=== PATIENT | male | born 1990 | race Caucasian/White ===

== ENCOUNTER 2017-01-10 08:55 | Emergency (ER) | payer OTHER ==
[2017-01-10 09:08] VITALS: BP 136/85
--- NOTE | 2017-01-10 09:45 | UC ---
Respiratory Complaint HPI - HPI Summary HPI Summary: 1 WEEK OF COUGH AND CONGESTION. NO FEVER, N/V/D. MILD ST WITH COUGH. - History of Current Complaint Chief Complaint: UCRespiratory Stated Complaint: COUGH Time Seen by Provider: 01/10/17 09:35 Hx Obtained From: Patient, Family/Business Development Coordinator - Onset/Duration: Gradual Onset, Lasting Days, Still Present Timing: Constant Severity Initially: Moderate Severity Currently: Moderate Pain Intensity: 0 Pain Scale Used: 0-10 Numeric Character: Cough: Nonproductive Aggravating Factors: Nothing Alleviating Factors: Nothing Associated Signs And Symptoms: Positive: URI, Nasal Congestion - Allergies/Home Medications Allergies/Adverse Reactions: Allergies Allergy/AdvReac Type Severity Reaction Status Date / Time hay fever Allergy Congestion Uncoded 01/10/17 09:02 pine trees Allergy Congestion Uncoded 01/10/17 09:02 PMH/Surg Hx/FS Hx/Imm Hx Endocrine History Of: Denies: Diabetes, Thyroid Disease Cardiovascular History Of: Denies: Cardiac Disorders, Hypertension Respiratory History Of: Reports: Asthma Denies: COPD GI/ History Of: Denies: Ulcer - Surgical History Surgical History: None - Family History Known Family History: Positive: Diabetes - Social History Alcohol Use: Rare Substance Use Type: None Smoking Status (MU): Former Smoker Type: Smokeless Tobacco Amount Used/How Often: DAILY-ALL DAY Length of Time of Smoking/Using Tobacco: 8 YRS - Immunization History Most Recent Influenza Vaccination: 2016 Most Recent Tetanus Shot: UTD Most Recent Pneumonia Vaccination: NONE Review of Systems Constitutional: Negative ENT: Sore Throat, Nasal Discharge Respiratory: Cough Cardiovascular: Negative Gastrointestinal: Negative All Other Systems Reviewed And Are Negative: Yes Physical Exam Triage Information Reviewed: Yes Appearance: Well-Appearing, No Pain Distress, Well-Nourished Vital Signs: Initial Vital Signs Temp 98.4 F 01/10/17 09:03 Pulse 74 01/10/17 09:03 Resp 18 01/10/17 09:03 BP 136/85 01/10/17 09:03 Pulse Ox 98 01/10/17 09:03 Vital Signs Reviewed: Yes Eyes: Positive: Conjunctiva Clear ENT: Positive: Hearing grossly normal, Pharyngeal erythema, TMs normal Neck: Positive: Supple, Nontender, No Lymphadenopathy Respiratory Exam: Normal Cardiovascular Exam: Normal Abdomen Description: Positive: Soft Musculoskeletal: Positive: No Edema Neurological: Positive: Alert Psychological: Positive: Normal Response To Family, Age Appropriate Behavior Skin: Negative: rashes UC Diagnostic Evaluation - Laboratory O2 Sat by Pulse Oximetry: 98 Respiratory Course/Dx - Differential Dx/Diagnosis Provider Diagnoses: ACUTE URI Discharge - Discharge Plan Condition: Stable Disposition: HOME Prescriptions: Albuterol HFA INHALER* [Ventolin HFA Inhaler*] 2 puff INH Q4H PRN #1 mdi PRN Reason: Shortness Of Breath guaiFENesin/CODIEN 100MG-10MG* [Robitussin AC 100Mg-10Mg*] 5 - 10 ml PO Q6H PRN #150 ml MDD 40 ML PRN Reason: Cough Patient Education Materials: Upper Respiratory Infection (ED) Referrals: SANDI Yepez [Primary Care Provider] - If Needed Additional Instructions: ACUTE UPPER RESPIRATORY INFECTION The common cold is a benign self-limited syndrome representing a group of diseases caused by members of several families of viruses. It is the most frequent acute illness in the [place] and throughout the industrialized world. The term "common cold" refers to a mild upper respiratory viral infection involving, to variable degrees, nasal congestion and discharge ( rhinorrhea), sneezing, sore throat, cough, low-grade fever, headache, and malaise. Symptomatic therapy remains the mainstay of common cold treatment. In the absence of convincing evidence of a secondary bacterial infection, antibiotics are not effective in the treatment of the common cold and should not be prescribed. Be advised that the usual course and duration of illness is up to one and a half weeks for patients with a cold, but can last slightly longer; symptoms usually persist longer in smokers.
== END 2017-01-10 09:54 | disposition home or self-care (01) ==
LOC: UCCORT 08:55
DX: J06.9 Acute upper respiratory infection, unspecified (principal); J45.909 Unspecified asthma, uncomplicated; Z87.891 Personal history of nicotine dependence
CPT/HCPCS: 99212; G0463

== ENCOUNTER 2018-07-16 17:12 | Emergency (ER) | payer OTHER ==
[2018-07-16 17:49] VITALS: BP 137/85
--- NOTE | 2018-07-16 18:40 | UC ---
Throat Pain/Nasal Rj HPI - HPI Summary HPI Summary: Pt c/o sinus congestion, pressure and pain X 4-5 days. - History of Current Complaint Chief Complaint: UCGeneralIllness Stated Complaint: COUGH,CONGESTION Time Seen by Provider: 07/16/18 18:27 Hx Obtained From: Patient Onset/Duration: Gradual Onset, Lasting Days, Still Present Severity: Moderate Pain Intensity: 0 Cough: None Associated Signs & Symptoms: Positive: Sinus Discomfort - Epiglottits Risk Factors Epiglottis Risk Factors: Negative - Allergies/Home Medications Allergies/Adverse Reactions: Allergies Allergy/AdvReac Type Severity Reaction Status Date / Time hay fever Allergy Congestion Uncoded 07/16/18 17:49 pine trees Allergy Congestion Uncoded 07/16/18 17:49 Home Medications: Home Medications Albuterol HFA INHALER* [Ventolin HFA Inhaler*] 2 puff INH Q4H PRN 07/16/18 [ History Confirmed 07/16/18] Cetirizine* [ZyrTEC 10 MG TAB*] 10 mg PO DAILY 07/16/18 [History Confirmed 07/16] Colchicine* [Colcrys*] 0.6 mg PO DAILY PRN 07/16/18 [History Confirmed 07/16/18] PMH/Surg Hx/FS Hx/Imm Hx Previously Healthy: Yes - Surgical History Surgical History: None - Family History Known Family History: Positive: Diabetes - Social History Occupation: Employed Full-time Lives: With Family Alcohol Use: Rare Substance Use Type: None Smoking Status (MU): Former Smoker Type: Smokeless Tobacco Amount Used/How Often: DAILY-ALL DAY Length of Time of Smoking/Using Tobacco: 8 YRS Have You Smoked in the Last Year: No - Immunization History Most Recent Influenza Vaccination: 2016 Most Recent Tetanus Shot: UTD Most Recent Pneumonia Vaccination: NONE Review of Systems All Other Systems Reviewed And Are Negative: Yes Constitutional: Positive: Fatigue Skin: Positive: Negative Eyes: Positive: Negative ENT: Positive: Sinus Congestion, Sinus Pain/Tenderness Respiratory: Positive: Cough Cardiovascular: Positive: Negative Gastrointestinal: Positive: Negative Genitourinary: Positive: Negative Motor: Positive: Negative Neurovascular: Positive: Negative Musculoskeletal: Positive: Negative Neurological: Positive: Headache Psychological: Positive: Negative Is Patient Immunocompromised?: No Physical Exam Triage Information Reviewed: Yes Appearance: Ill-Appearing Vital Signs: Initial Vital Signs Temp 97.5 F 07/16/18 17:46 Pulse 86 07/16/18 17:46 Resp 14 07/16/18 17:46 BP 137/85 07/16/18 17:46 Pulse Ox 99 07/16/18 17:46 Vital Signs Reviewed: Yes Eye Exam: Normal ENT: Positive: Nasal congestion, Sinus tenderness Dental Exam: Normal Neck exam: Normal Respiratory Exam: Normal Cardiovascular Exam: Normal Musculoskeletal Exam: Normal Neurological Exam: Normal Psychological Exam: Normal Skin Exam: Normal Throat Pain/Nasal Course/Dx - Differential Dx/Diagnosis Differential Diagnosis/HQI/PQRI: Influenza, Sinusitis, URI Provider Diagnosis: Sinusitis Discharge - Sign-Out/Discharge Documenting (check all that apply): Patient Departure All imaging exams completed and their final reports reviewed: No Studies - Discharge Plan Condition: Stable Disposition: HOME Prescriptions: Amoxicillin PO (*) [Amoxicillin 875 MG (*)] 875 mg PO Q12H #20 tab Guaifenesin/Pseudoephedrne HCl [Mucinex D ER 600-60 mg Tablet] 1 each PO Q12H # 10 tab.er.12h Patient Education Materials: Sinusitis (ED) Referrals: [facility] [Outside] No Primary Care Phys,NOPCP [Primary Care Provider] - - Billing Disposition and Condition Condition: STABLE Disposition: Home
== END 2018-07-16 18:51 | disposition home or self-care (01) ==
LOC: UCCORT 17:12
DX: J32.9 Chronic sinusitis, unspecified (principal); Z87.891 Personal history of nicotine dependence
CPT/HCPCS: 99212; G0463

== ENCOUNTER 2019-06-03 17:12 | Emergency (ER) | payer OTHER ==
--- OUTSIDE RECORDS SUMMARY | 2019-06-03 17:30 | XMS REPORT | Continuity of Care Document ---
:1990 External Reference #:[id number] Author Name Barbara Pascual M.D. Address [address] [place] [address] Care Team Providers Name Role Phone Josh Ferrara M.D Care Team Information Plant Quality Manager [phone] [facility] Care Team Information Plant Quality Manager [phone] Problems Active Problems Provider Date Allergic rhinitis due to animals Barbara Pascual M.D. Onset: 05/21/2019 Allergic rhinitis Barbara Pascual M.D. Onset: 05/21/2019 Mild persistent asthma Barbara Pascual M.D. Onset: 05/21/2019 Social History Type Date Description Comments Sex Unknown ETOH Use Rarely consumes alcohol Tobacco Use Start: Unknown End: Unknown Patient is a former smoker Recreational Drug Use Never Used Drugs Allergies, Adverse Reactions, Alerts Description No Known Drug Allergies Medications Active Medications SIG Qnty Indications Ordering Provider Date Benzonatate Master Beck, 200mg Activities Officer Capsules Montelukast Sodium Josh Ferrara, 10mg M.D Tablets Loratadine Take One Tablet Unknown 10mg Tablets By Mouth AT Bedtime Ventolin HFA Sylvia Giles 108(90Base) MJuan PA-C mcg/Act Aerosol Albuterol Sulfate Sylvia Giles MALEXA Martinez-C (2.5mg/3ML) 0.083% Nebulizer Immunizations Description No Information Available Vital Signs Date Vital Result Comment 05/21/2019 9:35am Height 67 inches 5'7" Weight 198.00 lb Weight 89.813 kg Respiratory Rate 20 /min Heart Rate 69 /min O2 % BldC Oximetry 98 % BP Systolic 118 mmHg BP Diastolic 83 mmHg Fractional Exhaled Nitric Oxide 9 BMI (Body Mass Index) 31.0 kg/m2 Results Description No Information Available Procedures Description No Information Available Medical Devices Description No Information Available Encounters Description No Information Available Assessments Date Code Description Provider 05/21/2019 J45.30 Mild persistent asthma Barbara Pascual M.D. 05/21/2019 J30.2 Allergic rhinitis Barbara Pascual M.D. 05/21/2019 J30.81 Allergic rhinitis due to animals Barbara Pascual M.D. Plan of Treatment 05/21/2019 - Barbara Pascual M.D.J45.30 Mild persistent uyyqsvQ37.2 Allergic [id number] Allergic rhinitis due to animalsRecommendations:Refrain from wearing perfumes/scented colognes while visiting our office. Karl Full PFT Skin testing to select envrotnal allergens performed reviewed Functional Status Description No Information Available Mental Status Description No Information Available Referrals Description No Information Available
--- OUTSIDE RECORDS SUMMARY | 2019-06-03 17:30 | XMS REPORT | Continuity of Care Document ---
:1990 External Reference #:[id number] Author Name Barbara Pascual M.D. Address [address] [place] [address] Care Team Providers Name Role Phone Josh Ferrara M.D Care Team Information Pelletizer Operator [phone] [facility] Care Team Information Pelletizer Operator [phone] Problems Active Problems Provider Date Allergic rhinitis [...] Medications SIG Qnty Indications Ordering Provider Date Crissy Allergy 1 by mouth every 30tabs Barbara Pascual, 05/21/2019 180mg day M.D. Tablets Nasacort Allergy spray 1 spray 10.800ml Barbara Pascual, 05/21/2019 24HR into each M.D. 55mcg/Act nostril one time Aerosol daily Breo Ellipta 1 puff once 60units Barbara Pascual, 05/21/2019 daily M.D. 100-25mcg/Inh Aerosol Benzonatate Master Beck, 200mg Landfill Gas Technician Capsules Montelukast Sodium Josh Ferrara, M.D 10mg Tablets Loratadine Take One Tablet Unknown 10mg By Mouth AT Tablets Bedtime Ventolin HFSylvia Mccarthy M., PA-C 108(90Base) mcg/Act Aerosol Albuterol Sulfate Sticht, Sylvia M., PA-C (2.5mg/3ML) 0.083% Nebulizer Immunizations Description No Information [...] kg/m2 Results Description No Information Available Procedures Date Code Description Status 05/21/2019 65780 Nitric Oxide Gas Determination Completed 05/21/2019 36336 Skin Test Scratch # Of Units ____ Completed 05/21/2019 17147 Pulmonary Function Test Completed Medical Devices Description No Information Available Encounters Description No Information Available Assessments Date Code Description Provider 05/21/2019 J45.30 Mild persistent asthma Barbara Pascual M.D. 05/21/2019 J30.2 Allergic rhinitis Barbara Pascual M.D. 05/21/2019 J30.81 Allergic rhinitis due to animals Barbara Pascual M.D. Plan of Treatment Future Appointment(s):06/18/2019 10:00 am - Alyssa GARCIA at [facility]05/21/2019 - Barbara Pascual M.D.J45.30 Mild persistent qsaaisY60.2 Allergic lrnrnklkK68.81 Allergic rhinitis due to animalsFollow up:3-4 weeks * DISCUSSION: After the evaluation is completed, the results and treatment choices will be explained. Karl, PRERecommendations:Refrain from wearing perfumes /scented colognes while visiting our office. Karl performed reviewed, looks normal today at 9 ppb, no overt eosinophilic asthma at this time, but it may have been higher, especially during grass season Full PFT performed reviewed, looks a but like asthma to start, following the administration of a bronchodilator, there was a significant improvement in lung volumes/ appears consistent with asthma and reversibility Skin testing to select environmental allergens performedreviewed, positive most prominently to grass, but also ragweed, other weeds, mod spores, dust mite, cat and dog. Borderline/Negative to trees. Start: Nasacort 2 sprays in each nostril once daily Crissy (or loratadine) 180 mg daily Continue: Montelukast daily Ventolin 2 puffs every 4- 6 hours as needed for cough/wheeze or trouble breathing, or prior to exercise Breo 100/25 1 puff once daily Functional Status Description No Information Available Mental Status Description No Information Available Referrals Description No Information Available
[2019-06-03 17:49] VITALS: BP 125/79
--- NOTE | 2019-06-03 18:32 | UC ---
Throat Pain/Nasal Rj HPI - HPI Summary HPI Summary: Patient is a 28yo male presenting with nasal congestion, cough, and sinus pressure x3 days. Notes sore throat from coughing. Notes 2 episodes of post tussive emesis. Denies nausea. Denies abdominal pain. Patient denies ear pain. Denies changes in appetite or fluid intake. Denies SOB and wheezing. Denies fever, chills, headaches. States he has been taking zarj-[id number]-wnkfltz cold medications and Tessalon Perles without relief. Notes seasonal allergies. - History of Current Complaint Chief Complaint: UCGeneralIllness Stated Complaint: COUGH, SORE THROAT Hx Obtained From: Patient Onset/Duration: Gradual Onset, Lasting Days Severity: Moderate Pain Intensity: 6 Pain Scale Used: 0-10 Numeric - Allergies/Home Medications Allergies/Adverse Reactions: Allergies Allergy/AdvReac Type Severity Reaction Status Date / Time hay fever Allergy Congestion Uncoded 06/03/19 17:43 pine trees Allergy Congestion Uncoded 06/03/19 17:43 PMH/Surg Hx/FS Hx/Imm Hx Previously Healthy: Yes - Surgical History Surgical History: None - Family History Known Family History: Positive: Diabetes - Social History Alcohol Use: Rare Substance Use Type: None Smoking Status (MU): Former Smoker Type: Smokeless Tobacco Amount Used/How Often: DAILY-ALL DAY Length of Time of Smoking/Using Tobacco: 8 YRS Have You Smoked in the Last Year: No - Immunization History Most Recent Influenza Vaccination: 2016 Most Recent Tetanus Shot: UTD Most Recent Pneumonia Vaccination: NONE Review of Systems All Other Systems Reviewed And Are Negative: Yes Constitutional: Positive: Negative. Negative: Fever, Chills Eyes: Positive: Negative ENT: Positive: Sore Throat, Nasal Discharge, Sinus Congestion. Negative: Ear Ache, Sinus Pain/Tenderness Respiratory: Positive: Cough. Negative: Shortness Of Breath Cardiovascular: Positive: Negative. Negative: Palpitations, Chest Pain Gastrointestinal: Positive: Vomiting. Negative: Abdominal Pain, Diarrhea, Nausea Musculoskeletal: Negative: Myalgia Neurological: Positive: Negative. Negative: Headache Physical Exam Triage Information Reviewed: Yes Appearance: No Pain Distress, Well-Nourished, Ill-Appearing Vital Signs: Initial Vital Signs Temp 98 F 06/03/19 17:46 Pulse 81 06/03/19 17:46 Resp 18 06/03/19 17:46 BP 125/79 06/03/19 17:46 Pulse Ox 99 06/03/19 17:46 Vital Signs Reviewed: Yes Eyes: Positive: Conjunctiva Inflamed. Negative: Discharge ENT: Positive: Hearing grossly normal, Pharyngeal erythema, Nasal drainage, TMs normal, Uvula midline. Negative: Nasal congestion, TM bulging, TM dull, TM red , Tonsillar swelling, Tonsillar exudate, Sinus tenderness Neck exam: Normal Neck: Positive: Supple, Nontender, No Lymphadenopathy Respiratory Exam: Normal Respiratory: Positive: Lungs clear, Normal breath sounds, No respiratory distress. Negative: Crackles, Rhonchi, Stridor, Wheezing Cardiovascular Exam: Normal Cardiovascular: Positive: RRR Neurological: Positive: Alert Psychological: Positive: Age Appropriate Behavior Throat Pain/Nasal Course/Dx - Course Course Of Treatment: Discussed viral etiology of symptoms with patient. Instructed him to continue mucinex, nasal spray, tessalon perles, and allergy medication as directed for symptomatic relief. Instructed him to follow up with PCP or [facility] if symptoms persist. Instructed him to go to the emergency room if symptoms worsen including fever, chills, excessive vomiting, or difficulty breathing. Patient voiced understanding and agreed to treatment plan. - Differential Dx/Diagnosis Provider Diagnosis: Upper respiratory infection, viral, Acute bronchitis Discharge ED - Sign-Out/Discharge Documenting (check all that apply): Patient Departure All imaging exams completed and their final reports reviewed: No Studies - Discharge Plan Condition: Stable Disposition: HOME Patient Education Materials: Upper Respiratory Infection (ED), Acute Bronchitis (ED) Referrals: [facility] [Outside] - If Needed [facility] [Outside] - If Needed Additional Instructions: As discussed, your symptoms are most likely caused by a virus and should resolve on their own within a week or so. You may continue to take over the counter cough and cold medications for your cold symptoms, including your Mucinex. You may use nasal spray as directed for symptomatic relief. You may also continue your daily allergy medication. You may take ibuprofen as directed for pain relief. You may also use lozenges or throat sprays as directed for relief of cough and sore throat. Get plenty of rest and fluids. Follow up with your PCP or one of the referrals below if your symptoms worsen or do not resolve within 7 days. Go to the emergency room if you experience shortness of breath, difficulty breathing, fever higher than 105, or nausea and vomiting. - Billing Disposition and Condition Condition: STABLE Disposition: Home
== END 2019-06-03 18:55 | disposition home or self-care (01) ==
LOC: UCCORT 17:12
DX: J06.9 Acute upper respiratory infection, unspecified (principal); J20.9 Acute bronchitis, unspecified; Z87.891 Personal history of nicotine dependence
CPT/HCPCS: 99211; G0463